=== PATIENT | male | born 1985 | race Caucasian/White ===

== ENCOUNTER 2018-07-17 10:08 | Emergency (ER) | payer MEDICAID ==
[~2018-07-17] VITALS: Ht 185.4 cm; Wt 123.0 kg
--- NOTE | 2018-07-17 10:30 | NUR ---
PT STATED THAT HE HAS A COUGH WITH GREEN PHLEGM AND SOME BLOOD IN IT, SORE THROAT, LIGHT WHEEZING, AND TROUBLE BREATHING. HISTORY OF ASTHMA. PT IS ALERT, ORIENTED, WITH NAD. PT IS CONNECTED TO THE MONITOR. CALL LIGHT WITHIN REACH. MD AT BEDSIDE.
[2018-07-17 10:48] LABS: BASOPHILS # (AUTO) 0.02 x10^3/uL (0-0.1); BASOPHILS % (AUTO) 0 % (0-1); EOSINOPHILS # (AUTO) 0.31 x10^3/uL (0-0.4); EOSINOPHILS % (AUTO) 2 % (1-7); LYMPHOCYTES # (AUTO) 1.63 x10^3/uL (1-3.4); LYMPHOCYTES % (AUTO) 11 % (22-44); MD NO; MEAN CORPUSCULAR HEMOGLOBIN 29.9 pg (27.5-34.5); MEAN CORPUSCULAR HGB CONC 34.6 g/dL (33.2-36.2); MEAN CORPUSCULAR VOLUME 86.5 fL (81-97); MEAN PLATELET VOLUME 7.5 fL (7.4-10.4); MONOCYTES # (AUTO) 1.27 x10^3/uL (0.2-0.8); MONOCYTES % (AUTO) 9 % (2-9); NEUTROPHILS # (AUTO) 11.09 x10^3/uL (1.8-6.8); NEUTROPHILS % (AUTO) 78 % (42-75); PLATELET COUNT 227 x10^3/uL (130-400); RED BLOOD COUNT 5.42 x10^6/uL (4.38-5.82); RED CELL DISTRIBUTION WIDTH 13.3 % (9.4-14.8)
--- NOTE | 2018-07-17 10:48 | NUR ---
PT TAKEN TO X RAY.
--- NOTE | 2018-07-17 10:54 | NUR ---
PT IS RESTING IN BED, WATCHING TV, RESPIRATIONS EQUAL AND NON LABORED. NAD. PT IS CONNECTED TO THE MONITOR. CALL LIGHT WITHIN REACH.
[2018-07-17 10:59] LABS: CULTURE INDICATED? YES; MICROSCOPIC INDICATED
[2018-07-17 11:00] LABS: ALANINE AMINOTRANSFERASE 30 U/L (12-78); ALBUMIN 3.6 g/dL (3.4-5.0); ANION GAP 6 mmol/L (5-15); CALCIUM 8.8 mg/dL (8.5-10.1); CHLORIDE 107 mmol/L (98-107); CREATININE 1.22 mg/dL (0.7-1.3)
[2018-07-17 11:03] LABS: ALKALINE PHOSPHATASE 83 U/L (45-117); BILIRUBIN,TOTAL 0.8 mg/dL (0.2-1.0); TOTAL PROTEIN 7.1 g/dL (6.4-8.2)
--- NOTE | 2018-07-17 12:15 | NUR ---
US AT BEDSIDE.
--- NOTE | 2018-07-17 12:46 | NUR ---
REPORT GIVEN TO [facility].
--- NOTE | 2018-07-17 12:55 | NUR ---
REPORT RECEIVED AT BEDSIDE FROM SUDEEP BEARD. NOTIFIED NO EKG HAS BEEN DONE, EKG ORDERED BY EDMD TO ADDRESS TRIAGE COMPLAINT OF "TROUBLE BREATHING." EKG TAKEN BY EDT AND REVIEWED BY EDMD. PT A&O, RESPS EVEN AND UNLABORED. VSS. PT TO BE DC'D ONCE PAPERWORK RECEIVED FROM .
[2018-07-17 13:10] VITALS: BP 107/69
--- NOTE | 2018-07-17 13:11 | NUR ---
PT GIVEN DC INSTRUCTIONS AND SCRIPT. PT EDUCATED REGARDING DC RX FOR AMOXICILLIN. PT A&O, RESPS EVEN AND UNLABORED, NADN AT DC. PT AMB TO DC DESK WITH STEADY GAIT. ALL QUESTIONS ANSWERED.
== END 2018-07-17 13:12 | disposition home or self-care (01) ==
LOC: ED 11:12
DX: J45.909 Unspecified asthma, uncomplicated (principal)
CPT/HCPCS: 36415; 71046; 76770; 80053; 81001; 85025; 87070; 87081; 87086; 87205; 87880; 93005; 99284